=== PATIENT | female | born 1995 | race Caucasian/White ===

== ENCOUNTER 2017-11-23 02:38 | Inpatient (IN) | payer BC ==
[2017-11-23 03:20] LABS: Amnisure Internal Control QC ACCEPTABLE (ACCEPTABLE)
[2017-11-23 03:30] LABS: Amnisure Test RUPTURE DETECTED (No Rupture)
[2017-11-23 03:33] VITALS: BMI 30.3
[2017-11-23] MEDS: Lactated Ringer's 1,000 ML IV SCH ×2 (04:16→06:34)
[2017-11-23] MEDS ORDERED: Promethazine HCl 25 MG/ML VIAL IM PRN ×2 (04:17→05:09)
[2017-11-23] MEDS ORDERED: Misoprostol 200 MCG TAB PR PRN (04:17)
[2017-11-23] MEDS ORDERED: Acetaminophen 500 MG TAB PO PRN (04:17)
[2017-11-23] MEDS ORDERED: Methylergonovine 0.2 MG/ML VIAL IM PRN (04:17)
[2017-11-23] MEDS ORDERED: Diphenoxylate HCl/Atropine Tablet PO PRN (04:17)
[2017-11-23] MEDS ORDERED: HYDROcodone/Acetaminophen 5/325 mg Tablet PO PRN ×2 (04:17→12:35)
[2017-11-23] MEDS ORDERED: Lidocaine 1% (PF) 30 ML VIAL SC PRN (04:17)
[2017-11-23] MEDS ORDERED: LR / Pitocin 40 units/1000 ml 1,000 ML IV PRN (04:17)
[2017-11-23] MEDS ORDERED: Ondansetron HCl/PF 4 MG/2 ML Vial IVP PRN ×3 (04:17→12:35)
[2017-11-23] MEDS ORDERED: Ibuprofen 800 MG TAB PO PRN (04:17)
[2017-11-23] MEDS ORDERED: Carboprost 250 MCG/ML AMP IM PRN (04:17)
--- NOTE | 2017-11-23 04:21 | PDOC.LDHP ---
Labor and Delivery H&P Chief complaint: loss of fluid HPI: 21yo at 38w5d by LMP here with LOF and painful ctx since midnight tonight. NO VB . Good FM Current gestational age (weeks): 38 Due date: 12/04/27 Dating criteria: last menstrual period Grav: 1 Para: 0 Current complications: none Abnormal US findings: No Past Medical History: depression, h/o suicide attempt 2016, no meds currently Current medications: pre- vitamins Previous surgical history: other (knee surgery x 3) Allergies/Adverse Reactions: Allergies Allergy/AdvReac Type Severity Reaction Status Date / Time No Known Allergies Allergy Verified 11/23/17 03:21 Social history: none - Physical Exam Vital signs reviewed and normal: yes General: NAD, breathing through contractions Heart: RRR Lungs: CTAB Abdomen: gravid Extremeties: no edema FHT: category 1 Jeddo contractions every: 3min - Vaginal Exam cm dilated: 3 Effacement: 75% Station: -1 - OB Labs RH: positive Antibody Screen: negative HIV: negative RPR: negative HEPSAg: negative 1 hour GCT: negative GBS: negative Rubella: immune - Assessment L&D Assessment: term patient in labor - Plan Plan: admit to L&D, labor augmentation if indicated, informed consent obtained, anesthesia consult for pain management
[2017-11-23 04:32] LABS: Mean Corpuscular HGB CONC 34.1 g/dL (32.0-36.0); Mean Corpuscular Hemoglobin 30.3 pg (25.0-35.0); Mean Corpuscular Volume 88.7 fl (77.0-87.0); Mean Platelet Volume 9.3 fL (7.4-10.4); Platelet Count 176 thou/uL (130-400); Red Blood Cell (RBC) Count 3.96 mill/uL (4.00-5.20)
[2017-11-23] MEDS ORDERED: DISCONTINUE ALL PREVIOUS NARCOTICS FS SCH (04:45)
[2017-11-23] MEDS ORDERED: Bupivacaine 0.5% 20 ML, Fentanyl 400 MCG in Sodium Chloride 0.9% 72 ML EPIDURAL SCH (04:45)
[2017-11-23 05:06] LABS: Hep B Surf Ag Non-Reactive S/CO (NonReactive)
[2017-11-23] MEDS ORDERED: ePHEDrine/0.9% NaCl/PF SYRINGE 50 mg/10 ml SLOW IVP PRN (05:09)
[2017-11-23] MEDS ORDERED: Lactated Ringer's 500 ML IV PRN (05:09)
[2017-11-23] MEDS ORDERED: Naloxone HCl 0.4 mg/ml Vial IVP PRN ×2 (05:09)
[2017-11-23] MEDS ORDERED: Acetaminophen 325 MG TAB PO PRN (05:09)
[2017-11-23] MEDS ORDERED: Eucerin (Mineral Oil/Petrolatum,White) 30 gm Jar TOP PRN (05:09)
[2017-11-23] MEDS ORDERED: diphenhydrAMINE 50 MG/ML VIAL IVP PRN (05:09)
[2017-11-23] MEDS ORDERED: Fentanyl 4mcg/Marcaine 0.1% Cassette 100 ML EPIDURAL SCH (05:15)
[2017-11-23] MEDS ORDERED: Communication Order-Pharmacy FS SCH (05:15)
[2017-11-23 06:09] LABS: Syphilis Antibody Nonreactive (Nonreactive); Syphilis Antibody Index 0.03 S/CO (<1.00 Non-Reactive)
[2017-11-23] MEDS ORDERED: LR 500 ML/Oxytocin 10 units 500 ML ONE (07:59)
[2017-11-23] MEDS ORDERED: Bupivacaine/Epinephrine 0.25% 30 ML VIAL ONE (11:11)
--- NOTE | 2017-11-23 12:02 | PDOC.OPDEL ---
OB Operative/Delivery Note Delivery Dr/Surgeon: Johnathan Assist: n/a Pre-Delivery Diagnosis: ruptured membrane Procedure/Post Delivery Dx: spontaneous vaginal delivery Weeks gestation: 38 Anesthesia: epidural - Findings A Sex: male - Additional Findings/Plan Placenta delivered: spontaneous Repaired Obstetrical Laceration: vaginal (left side wall, repaired with 2-0 vicryl in figure of eight, excellent hemostasis) Estimated blood loss: 200 Post delivery plan: routine recovery
[2017-11-23] MEDS ORDERED: Adacel (T-DAP) 0.5 ML VIAL IM ONE (12:35)
[2017-11-23] MEDS ORDERED: Milk Of Magnesia 30 ML UDCUP PO PRN (12:35)
[2017-11-23] MEDS ORDERED: Lanolin Ointment 7 GM TUBE TOP PRN (12:35)
[2017-11-23] MEDS ORDERED: Preparation H Ointment 28 GM TUBE PR PRN (12:35)
[2017-11-23] MEDS ORDERED: diphenhydrAMINE 25 MG CAP PO PRN (12:35)
[2017-11-23] MEDS ORDERED: Bisacodyl 10 MG SUPP PR PRN (12:35)
[2017-11-23] MEDS ORDERED: LR / Pitocin 40 units/1000 ml 1,000 ML IV SCH (12:35)
[2017-11-23] MEDS ORDERED: Benzocaine/Menthol 20-0.5% 60 ML CAN TOP PRN (12:35)
[2017-11-23] MEDS: Ibuprofen 800 MG TAB PO SCH ×2 (15:00→20:57)
[2017-11-23] MEDS: Ferrous Sulfate 325 MG TAB PO SCH (18:38)
[2017-11-23] MEDS: Docusate Calcium (SURFAK) 240 MG CAP PO SCH (20:57)
--- NOTE | 2017-11-24 06:15 | PDOC.PP ---
Post Progress Note Post Day #: PPD#1 PO intake tolerated: yes Ambulation: yes Vital Signs (12 hours) Temp Pulse Resp BP 11/24/17 04:00 98.4 F 75 18 11/24/17 00:00 98.4 F 75 18 131/66 11/23/17 20:00 98.5 F 74 18 124/65 Weight Weight 75.296 kg - Physical Examination General: NAD Abdominal: lochia Extremities: negative homans (B) Psychiatric: A&Ox3 Result Diagrams: 11/23/17 04:15 Additional Labs: Post Labs Blood Type O POSITIVE 11/23/17 04:15 Hep Bs Antigen Non-Reactive S/CO (NonReactive) 11/23/17 04:15 - Assessment/Plan Doing well s/p . Routine PP care.
[2017-11-24] MEDS: Ibuprofen 800 MG TAB PO SCH ×3 (06:19→22:02)
[2017-11-24] MEDS: HYDROcodone/Acetaminophen 5/325 mg Tablet PO PRN ×4 (07:46→23:28)
[2017-11-24] MEDS: Docusate Calcium (SURFAK) 240 MG CAP PO SCH ×2 (07:46→22:01)
[2017-11-24] MEDS: Prenatal Vitamin 1 TAB PO SCH (07:46)
[2017-11-24] MEDS: Ferrous Sulfate 325 MG TAB PO SCH ×2 (07:47→17:39)
[2017-11-25] MEDS: Ibuprofen 800 MG TAB PO SCH (05:58)
[2017-11-25] MEDS: HYDROcodone/Acetaminophen 5/325 mg Tablet PO PRN (05:58)
[2017-11-25] MEDS: Ferrous Sulfate 325 MG TAB PO SCH (07:19)
[2017-11-25 07:40] VITALS: BP 121/68; TEMP 98.1
--- NOTE | 2017-11-25 08:25 | DIS ---
DATE OF ADMISSION: 11/23/2017 DATE OF DISCHARGE: 11/25/2017 ADMITTING DIAGNOSIS: Labor at term. DISCHARGE DIAGNOSIS: Labor at term. PROCEDURE: Term spontaneous vaginal delivery. CONSULTATIONS: None. HOSPITAL COURSE: Patient is a 21-year-old G1, now P1 female who presented to labor and delivery in a ctive labor who was admitted and subsequently had an uncomplicated term spontaneous vaginal delivery. Her course has been uncomplicated. Today, day #2, patient reports she is callum erating p.o., voiding on her own, having good pain control and decreased lochia. PHYSICAL EXAMINATION: VITAL SIGNS: This morning, blood pressure is 118/62, temperature 98.2, pulse 72, respiratory rate of 20. GENERAL: She appears to be in no acute distress. She is alert and oriented, cooperative and pleasan t to interact with. HEAD: Normocephalic, atraumatic. ABDOMEN: Soft. Fundus is firm. EXTREMITIES: Nontender, nonedematous. DISCHARGE INSTRUCTIONS AND PLAN: The patient is being discharged to home. She has instructions to f ollow up with her doctor, Dr. Torres in 6 weeks. She has instructions to follow up sooner if she expe riences fever, increasing pain or bleeding or other concerns during her course. Patient i s being discharged home with ibuprofen 800 mg #20.
[2017-11-25] MEDS: Docusate Calcium (SURFAK) 240 MG CAP PO SCH (08:48)
[2017-11-25] MEDS: Prenatal Vitamin 1 TAB PO SCH (08:48)
== END 2017-11-25 12:00 | disposition home or self-care (01) | DRG 775 ==
LOC: L&D/OP 02:38 → L&D 03:41 → 3SW 14:41
PROVIDERS: ADMIT Student in an Organized Health Care Education/Training Program; ATTEND Student in an Organized Health Care Education/Training Program
PROC: 10E0XZZ Delivery of Products of Conception, External Approach (ICD-10-PCS; principal; 2017-11-23)
PROC: 0UQGXZZ Repair Vagina, External Approach (ICD-10-PCS; 2017-11-23)
DX: O70.0 First degree perineal laceration during delivery (principal); Z37.0 Single live birth; Z3A.38 38 weeks gestation of pregnancy
CPT/HCPCS: 51702; 84112; 85027; 86780; 87340; 90715; 99285; J1200; J2001; J3010; J3490; J7050; J7120

== ENCOUNTER 2018-08-24 23:16 | Emergency (ER) | payer BC ==
[2018-08-24 23:40] LABS: Bilirubin Negative (Negative); Blood, Urine Small (Negative); Clarity Clear (Clear); Glucose, Urine (Dipstick) Negative (Negative); Leukocyte Moderate (Negative); Nitrite Negative (Negative); Protein, Urine (Dipstick) 30 mg/dL (Neg-Trace)
[2018-08-24] MEDS ORDERED: Ketorolac Tromethamine 30 MG/ML VIAL ONE (23:41)
[2018-08-24 23:43] LABS: Bacteria/HPF 2+ HPF (None Seen); Hyaline Casts/LPF 0-3 HYALINE CAST LPF (0-3 Hyaline)
[2018-08-24 23:50] LABS: Pregnancy Test - Urine (BHCG) Negative (Negative); Pregu Control Background? CLEAR/WHITE (CLR/WHITE); Pregu Control Bar Appear? YES (CONTROL BAR)
[2018-08-25 00:01] LABS: Hemoglobin 13.5 g/dL (12.0-16.0); Mean Corpuscular HGB CONC 34.5 g/dL (32.0-36.0); Mean Corpuscular Hemoglobin 30.7 pg (27.0-31.0); Platelet Count 145 thou/uL (130-400); Red Blood Cell (RBC) Count 4.39 mill/uL (4.20-5.40)
[2018-08-25 00:14] LABS: ALT (SGPT) 10 U/L (8-55); AST (SGOT) 13 U/L (5-34); Albumin 4.9 g/dL (3.5-5.0); Alkaline Phosphatase 130 U/L (40-150); Anion Gap 15 mmol/L (10-20); BUN (Urea Nitrogen) 9 mg/dL (7.0-18.7); Bilirubin, Total 0.4 mg/dL (0.2-1.2); Calc. Creatinine Clearance 0 mL/min (70-130); Calcium 9.5 mg/dL (7.8-10.44); Carbon Dioxide 22 mmol/L (22-29); Chloride 107 mmol/L (98-107); Estimated GFR-MDRD Greater than 90; Globulin 2.8 g/dL (2.4-3.5); Glucose 92 mg/dL (70-105); Potassium 3.5 mmol/L (3.5-5.1); Protein, Total 7.7 g/dL (6.0-8.3); Sodium 140 mmol/L (136-145)
[2018-08-25 00:21] LABS: Band 2 % (5-11); Lymphocytes 37 % (21-51); MDiff Complete? YES; Monocytes 6 % (0-10); Neutrophil 55 % (42-75)
--- NOTE | 2018-08-25 09:30 | CT ---
PRELIMINARY REPORT/[facility]/EMERGENTY AFTER-HOURS PROCEDURE CT Abdomen and Pelvis Without Contrast EXAM DATE/TIME: 08/25/2018 12:04 AM CLINICAL HISTORY: 22 years old, female; Pain; Abdominal pain; Patient HX: Patient reports right flank pain that started 3 days ago. Patient reports feeling symptoms of a uti starting and reports taking cranberry pills an d reports relief. Patient reports decreased appetite. TECHNIQUE: Axial computed tomography images of the abdomen and pelvis without contrast. Coronal reformatted images were created and reviewed. COMPARISON: No relevant prior studies available. FINDINGS: Lower thorax: The lung bases are clear. ABDOMEN: Liver: Unremarkable. Gallbladder and bile ducts: No definite gallbladder abnormality by CT. Ultrasound could be more sensi tive for detecting gallstones, if clinically needed. No biliary tree dilation. Pancreas: Unremarkable. Spleen: Unremarkable. Adrenals: Unremarkable. Kidneys and ureters: No hydronephrosis of either kidney. No visible renal or ureteral calculus. No pe rinephric fluid. Normal appearance of the kidneys on noncontrast CT does not entirely exclude the diagnosis of acute p yelonephritis. Please correlate with clinical and laboratory evaluation. Stomach and bowel: There are no CT findings to strongly suggest diverticulitis. Appendix: The appendix is visualized and appears normal. PELVIS: Bladder: There appears be mild to moderate diffuse urinary bladder wall thickening. While nonspecific , this could indicate evidence for cystitis. Please correlate clinically. Reproductive: 4 cm right adnexal/ovarian cyst. A physiologic cyst is likely this young age group, oth er etiologies not excluded. Ultrasound could further evaluate these ovarian findings if felt clinically indicated, and could also be used for appropriate follow-up, to insure against a persistent or enlarging lesion. Small amount of cul-de-sac fluid. ABDOMEN and PELVIS: Intraperitoneal space: No free air, generalized ascites, or bowel distention. Bones/joints: No significant acute finding. Soft tissues: No significant acute finding. Vasculature: No evidence for abdominal aortic aneurysm. Lymph nodes: No retroperitoneal adenopathy. IMPRESSION: 1. No hydronephrosis of either kidney. No visible renal or ureteral calculus. No perinephric fluid. S ee above discussion. 2. Possible urinary bladder wall thickening, see above. 3. 4 cm right adnexal/ovarian cyst, see above discussion. 4. Small amount of cul-de-sac fluid. 5. Unremarkable gallbladder by CT. 6. Normal appendix. 7. Other findings discussed above. Thank you for allowing us to participate in the care of your patient. Dictated and Authenticated by: Adama Sharp MD 08/25/2018 2:32 AM Central Time ([place] & [place]) FINAL REPORT EMERGENT AFTER HOURS CT OF THE ABDOMEN AND PELVIS WITHOUT CONTRAST: FINDINGS/IMPRESSION: I agree with the findings and impression given in the preliminary report per [facility] physician. There is a cystic structure in the pelvis which likely represents a physiologic follicle/cyst. A small jose unt of free fluid in the pelvis is also likely physiologic. No other acute intraabdominal/pelvic abn ormality is seen. POS: WM
== END 2018-08-25 02:51 | disposition home or self-care (01) ==
LOC: SCSER 23:16
DX: N12 Tubulo-interstitial nephritis, not specified as acute or chronic (principal); N83.201 Unspecified ovarian cyst, right side
CPT/HCPCS: 74176; 80053; 81003; 81015; 81025; 85025; 87077; 87086; 96361; 96374; J1885

== ENCOUNTER 2019-01-22 22:48 | Emergency (ER) | payer BC ==
[2019-01-22] MEDS ORDERED: Metoclopramide HCl 10 MG/2 ML VIAL ONE (23:19)
[2019-01-22] MEDS ORDERED: diphenhydrAMINE 50 MG/ML VIAL ONE (23:19)
[2019-01-22] MEDS ORDERED: Ondansetron PF 4 MG/2 ML Vial ONE (23:19)
[2019-01-22 23:37] LABS: Pregnancy Test - Urine (BHCG) Negative (Negative); Pregu Control Background? CLEAR/WHITE (CLR/WHITE); Pregu Control Bar Appear? YES (CONTROL BAR); Specific Gravity 1.026 (1.002-1.036)
== END 2019-01-23 00:55 | disposition home or self-care (01) ==
LOC: SCSER 22:48
DX: J01.90 Acute sinusitis, unspecified (principal); F41.9 Anxiety disorder, unspecified; F32.9 Major depressive disorder, single episode, unspecified; F43.10 Post-traumatic stress disorder, unspecified; F17.290 Nicotine dependence, other tobacco product, uncomplicated; Z79.899 Other long term (current) drug therapy
CPT/HCPCS: 81025; 96365; 96375; J1200; J2405; J2765